=== PATIENT | male | born 1995 | race American Indian/Alaskan Native ===

== ENCOUNTER 2018-03-16 10:17 | Emergency (ER) | payer SELFPAY ==
[2018-03-16 11:23] VITALS: BP 139/97
--- NOTE | 2018-03-16 15:13 | Emergency Department Report ---
ED ENT HPI - General Chief complaint: Earache Stated complaint: BUG BITE Time Seen by Provider: 03/16/18 15:13 Source: patient Mode of arrival: Ambulatory Limitations: No Limitations - Related Data Allergies Allergy/AdvReac Type Severity Reaction Status Date / Time No Known Allergies Allergy Unverified 03/16/18 11:23 ED Dental HPI - General Chief complaint: Earache Stated complaint: BUG BITE Time Seen by Provider: 03/16/18 15:13 Source: patient Mode of arrival: Ambulatory Limitations: No Limitations - Related Data Allergies Allergy/AdvReac Type Severity Reaction Status Date / Time No Known Allergies Allergy Unverified 03/16/18 11:23 ED Review of Systems ROS: Stated complaint: BUG BITE Other details as noted in HPI ED Past Medical Hx - Past Medical History Previous Medical History?: No - Surgical History Past Surgical History?: No - Social History Smoking Status: Current Every Day Smoker Substance Use Type: Alcohol ED Physical Exam - General Limitations: No Limitations ED Course Vital Signs 03/16/18 11:20 Temperature 98 F Pulse Rate 66 Respiratory 18 Rate Blood Pressure 139/97 O2 Sat by Pulse 100 Oximetry Critical care attestation.: If time is entered above; I have spent that time in minutes in the direct care of this critically ill patient, excluding procedure time. ED Disposition Condition: Stable Referrals: PRIMARY CARE, [Primary Care Provider] - 3-5 Days
== END 2018-03-16 16:04 | disposition left against medical advice (07) ==
LOC: ED 10:17
DX: H92.02 Otalgia, left ear (principal); Z53.21 Procedure and treatment not carried out due to patient leaving prior to being seen by health care provider